=== PATIENT | female | born 1960 | race Asian ===

== ENCOUNTER 2017-09-09 17:25 | Emergency (ER) | END 2017-09-09 22:12 | disposition home or self-care (01) ==

== ENCOUNTER 2017-09-20 08:09 | Day surgery (SDC) | END 2017-09-20 13:45 | disposition home or self-care (01) ==

== ENCOUNTER 2017-09-25 23:23 | Inpatient (IN) | END 2017-10-11 22:02 | disposition hospice, inpatient (51) | DRG 872 ==